=== PATIENT | female | born 2000 | race Caucasian/White ===

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

== ENCOUNTER 2022-11-03 22:24 | Emergency (ER) | payer BC, MEDICAID ==
[~2022-11-03] VITALS: Ht 160 cm; Wt 45.0 kg
[~2022-11-03 22:24] MED LIST: ONDA4TAB6 PO
[2022-11-03 22:46] VITALS: BP 105/59
[2022-11-03] MEDS ORDERED: bacitracin 15gm ointment TP ONE (22:50)
[2022-11-03] MEDS ORDERED: LIDOcaine 1% W/epiNEPHrine 1:100,000 20ml vial IJ ONE (22:50)
[2022-11-03] MEDS ORDERED: amox tr/potassium clavulanate 875/125mg TAB PO ONE (22:50)
[2022-11-03] MEDS ORDERED: AMOX-117 PO (23:32)
== END 2022-11-04 00:22 | disposition home or self-care (01) ==
LOC: ER 22:25
DX: S01.01XA Laceration without foreign body of scalp, initial encounter (principal); S60.415A Abrasion of left ring finger, initial encounter; W18.39XA Other fall on same level, initial encounter; Y93.89 Activity, other specified; Y92.89 Other specified places as the place of occurrence of the external cause; Y99.8 Other external cause status
CPT/HCPCS: 12001; 12002; 73140; 99283